=== PATIENT | male | born 1985 | race Caucasian/White ===

== ENCOUNTER → 2018-07-20 | Outpatient (CLI) | payer OTHER | LOC: COL.CARD 08:00 | DX: R07.9 Chest pain, unspecified (principal) ==

== ENCOUNTER 2019-11-07 01:44 | Emergency (ER) | payer OTHER ==
[~2019-11-07] VITALS: Ht 190.5 cm; Wt 88.6 kg
[2019-11-07 01:47] VITALS: BP 117/83; TEMP 97.6
[2019-11-07] MEDS ORDERED: NORCO 325 MG-51 TAB PO ×2 (04:40→04:41)
[2019-11-07 04:51] VITALS: PULSE 85
== END 2019-11-07 04:51 | disposition home or self-care (01) ==
LOC: COL.ER 01:44
DX: S42.301A Unspecified fracture of shaft of humerus, right arm, initial encounter for closed fracture (principal); F10.129 Alcohol abuse with intoxication, unspecified; R40.2412 Glasgow coma scale score 13-15, at arrival to emergency department; Z23 Encounter for immunization; W17.89XA Other fall from one level to another, initial encounter
CPT/HCPCS: J7030